=== PATIENT | female | born 1940 | race Caucasian/White ===

== ENCOUNTER 2018-10-02 06:50 | Emergency (ER) | payer MEDICARE ==
[2018-10-02 06:58] VITALS: BP 173/77; PULSE 77; RESP 16; TEMP 98.9
[2018-10-02] MEDS ORDERED: MORPHINE SULFATE 2 MG/ML SYRINGE IM STA (07:36)
[2018-10-02] MEDS ORDERED: KETOROLAC 60 MG/2 ML VIAL IM STA (07:36)
--- NOTE | 2018-10-02 07:46 | ED ---
General Adult HPI - General Chief complaint: Back Pain/Injury Stated complaint: Sciatic Pain Time Seen by Provider: 10/02/18 07:20 Source: patient, RN notes reviewed Mode of arrival: ambulatory Limitations: no limitations - History of Present Illness Initial comments: Patient is a pleasant 78-year-old female presenting to the emergency Department with left buttocks pain. Onset of symptoms was several days ago. Patient states discomfort starts in the left buttocks and does radiate towards the leg. Discomfort is positional. Patient states discomfort is mild at rest and severe with position changes and movement. No weakness. No incontinence or retention of bowel or bladder. This is not a chronic problem. Patient did see her practitioner the other day and was given muscle relaxers and some sort of shot. Patient states discomfort continues despite that. Patient request pain pills. - Related Data Home Medications Medication Instructions Recorded Confirmed Glimepiride [Amaryl] 1 mg PO [id number] 09/12/14 09/12/14 Levothyroxine Sodium [Synthroid] 100 mcg PO DAILY 09/12/14 09/12/14 Pioglitazone [Actos] 30 mg PO DAILY 09/12/14 09/12/14 Potassium Chloride 20 meq PO 09/12/14 09/12/14 Previous Rx's Medication Instructions Recorded Ondansetron [Zofran ODT] 4 mg PO Q8HR #10 tab 09/12/14 Hydrocodone/Acetaminophen [Lead 1 each PO Q4HR PRN #12 tab 10/02/18 5-325] predniSONE 20 mg PO BID #8 tab 10/02/18 Allergies Allergy/AdvReac Type Severity Reaction Status Date / Time No Known Allergies Allergy Verified 10/02/18 06:58 Review of Systems ROS Statement: Those systems with pertinent positive or pertinent negative responses have been documented in the HPI. ROS Other: All systems not noted in ROS Statement are negative. Constitutional: Denies: fever Eyes: Denies: eye pain ENT: Denies: ear pain Respiratory: Denies: cough Cardiovascular: Denies: chest pain Endocrine: Denies: fatigue Gastrointestinal: Denies: abdominal pain Genitourinary: Denies: dysuria Musculoskeletal: Reports: as per HPI Skin: Denies: rash Neurological: Denies: weakness Past Medical History Past Medical History: Diabetes Mellitus, Hypertension, Thyroid Disorder History of Any Multi-Drug Resistant Organisms: None Reported Past Surgical History: Orthopedic Surgery Past Psychological History: No Psychological Hx Reported Smoking Status: Never smoker Past Alcohol Use History: None Reported Past Drug Use History: None Reported General Exam Limitations: no limitations General appearance: alert, in no apparent distress Head exam: Present: atraumatic Eye exam: Present: normal appearance Neck exam: Present: normal inspection Respiratory exam: Present: normal lung sounds bilaterally Cardiovascular Exam: Present: regular rate, normal rhythm Expanded Peripheral pulses: 2+: Dorsalis Pedis (R), Dorsalis Pedis (L) GI/Abdominal exam: Present: soft. Absent: distended, tenderness, pulsatile mass Extremities exam: Present: normal inspection. Absent: calf tenderness Back exam: Present: other (Patient does have tenderness left sciatic region, mild) Neurological exam: Present: alert. Absent: motor sensory deficit Psychiatric exam: Present: normal affect, normal mood Skin exam: Present: normal color Course Vital Signs 10/02/18 06:54 Temperature 98.9 F Pulse Rate 77 Respiratory 16 Rate Blood Pressure 173/77 O2 Sat by Pulse 97 Oximetry Disposition Clinical Impression: Sciatica Disposition: HOME SELF-CARE Condition: Stable Instructions (If sedation given, give patient instructions): Sciatica (ED) Additional Instructions: Please follow-up to primary care physician in the next day or 2 for recheck. Return for weakness, loss of control of bowel or bladder, worsening or changing symptoms or other concerns. Do not take pain pills with muscle relaxers. Prescriptions: Hydrocodone/Acetaminophen [Lead 5-325] 1 each PO Q4HR PRN #12 tab PRN Reason: Pain predniSONE 20 mg PO BID #8 tab Is patient prescribed a controlled substance at d/c from ED?: Yes When asked, does pt state using other controlled substances?: No If prescribed controlled substance>3 days was MAPS reviewed?: Prescribed <3 Days If opioid is for acute pain is fill amount 7 days or less?: Yes If Rx opioid, was Start Talking consent form obtained?: Yes Referrals: Adam Salvador MD [Primary Care Provider] - 1-2 days Time of Disposition: 07:46
== END 2018-10-02 07:54 | disposition home or self-care (01) ==
LOC: EC 06:50
DX: M54.32 Sciatica, left side (principal); E11.9 Type 2 diabetes mellitus without complications; E07.9 Disorder of thyroid, unspecified; Z79.84 Long term (current) use of oral hypoglycemic drugs; Z79.890 Hormone replacement therapy; Z79.899 Other long term (current) drug therapy
CPT/HCPCS: 96372; 99283